=== PATIENT | female | born 1985 | race Caucasian/White ===

== ENCOUNTER 2024-10-02 18:04 | Emergency (ER) | payer MEDICAID, SELFPAY ==
[2024-10-02 18:06] VITALS: BP 117/78; PULSE 98; RESP 16; TEMP 36.9; O2SAT 100; BMI 21.1
--- NOTE | 2024-10-02 18:15 | CT_ITS ---
PROCEDURE: BRAIN/HEAD WITHOUT CONTRAST REASON FOR EXAM: CHANGE IN MENTAL STATUS TECHNIQUE: Head CT without intravenous contrast. COMPARISON: None. FINDINGS: There is no acute intracranial hemorrhage, mass effect, or evidence of large acute infarct. Brain: Normal CSF Spaces: Normal Sinuses/Mastoids: Clear at visualized levels Bones: Unremarkable CT/Brain/Head without Contrast IMPRESSION: No acute intracranial abnormality. If concern persists, consider MRI One or more dose reduction techniques were used (e.g., Automated exposure contr ol, adjustment of the mA and/or kV according to patient size, use of iterative reconstruction technique). Reading Location: [id number]
--- NOTE | 2024-10-02 18:16 | EX.ED.DYSGE1 ---
HPI History of Present Illness Chief Complaint: Mental Status Change Narrative Narrative: 38-year-old female was brought in by EMS. History is limited but apparently patient has history of drug use and has been staying with family and not taking her psychiatric medications. Today she was hallucinating bugs were crawling out of her skin and became very agitated. Family called EMS who gave the patient IM Versed 4 mg. She became lethargic and was brought in for evaluation. PFSH PFS Medical History unable to obtain Allergy/AdvReac Type Severity Reaction Status Date / Time No Known Allergies Allergy Verified 10/02/24 19:16 Family History unable to obtain Surgical History unable to obtain Social History Smoking Status: Heavy Smoker (>10/day) ROS ROS ED ROS Narrative Unable to obtain due to patient cooperation and mental status EXAM Physical Exam Narrative Exam Narrative: CONST: Patient lying in bed with eyes closed. EYES: Normal inspection. PERRL. NECK: Normal inspection. RESP: No respiratory distress, CTAB. CVS: Regular rate and rhythm, no murmur, no gallop. ABD: Soft and nontender, no guarding or rebound, nondistended. SKIN: Color normal, no rash, warm, dry, intact. EXTREMITIES: Normal appearance, no pedal edema. NEURO: Alert and answering questions appropriately. Equal virtual assistant for advertisers strength, moving all extremities. PSYCH: Normal affect. Const Vital Signs: 10/02/24 18:06 10/02/24 19:05 10/02/24 20:00 Temperature 98.4 F Temperature Source Temporal Pulse Rate 98 62 73 Respiratory Rate 16 12 19 H Blood Pressure 117/78 120/79 Blood Pressure Mean 91 92 Pulse Ox 100 98 96 Oxygen Delivery Method Room Air Room Air Room Air 10/02/24 21:00 Temperature Temperature Source Pulse Rate 69 Respiratory Rate 17 Blood Pressure Blood Pressure Mean Pulse Ox 99 Oxygen Delivery Method Room Air MDM MDM MDM Narrative Medical decision making narrative: History gathered from: Patient, her mother and [id number] Differential includes drug use versus underlying psychiatric disorder Patient's family arrived to provide more history. She had a recent psychiatric hospitalization in [place] 2 weeks ago and has bipolar with psychotic features. She has not been taking her medications (possibly olanzapine?) and has been having hallucinations. On arrival patient was sleepy but arouses to voice and answers basic questions appropriately. She has no focal neurological deficits. White count is normal at 8.5. Hemoglobin 11.0. BMP shows normal electrolytes and renal function. Glucose is low at 41. Patient is actually much more awake and alert was given orange juice and a snack. Urine tox is positive for amphetamines and benzodiazepines. When I told her the results she admits to smoking meth and she received Versed from the paramedics which explains the positive benzodiazepine result. Alcohol is negative. CT brain is negative. Patient is medically cleared for evaluation by crisis. Lab Data Attestation: I reviewed the patient's lab results. Labs: Laboratory Results - last 24 hr 10/02/24 10/02/24 10/02/24 19:25 19:35 20:57 WBC 8.5 RBC 4.09 L Hgb 11.0 L Hct 33.3 L MCV 81.4 MCH 26.9 L MCHC 33.0 RDW Std Deviation 46.4 H RDW Coeff of Tutu 15.8 H Plt Count 357 MPV 10.9 Immature Gran % (Auto) 0.200 Neut % (Auto) 47.2 Lymph % (Auto) 39.8 [place] % (Auto) 9.9 Eos % (Auto) 2.3 Baso % (Auto) 0.6 Absolute Neuts (auto) 4.0 Absolute Lymphs (auto) 3.39 Nucleated RBC % 0 Sodium 140 Potassium 4.0 Chloride 100 Carbon Dioxide 22.1 Anion Gap 17 H BUN 15 Creatinine 0.81 Estim Creat Clear Calc 84.74 Est GFR (MDRD) Non-Af 95 BUN/Creatinine Ratio 18.1 Glucose 41 L* Calcium 10.5 Total Bilirubin 0.35 AST 39 H ALT 25 Alkaline Phosphatase 86 Total Protein 9.4 H Albumin 5.3 H Globulin 4.1 Albumin/Globulin Ratio 1.3 Urine Test Negative Urine Opiates Screen NEGATIVE U Buprenorphine Qual NEGATIVE Ur Oxycodone Screen NEGATIVE Urine Methadone Screen NEGATIVE Urine Fentanyl Screen NEGATIVE Ur Barbiturates Screen NEGATIVE Ur Phencyclidine Scrn NEGATIVE Ur Amphetamines Screen PRESUMPTIVE POSITIVE U Benzodiazepines Scrn PRESUMPTIVE POSITIVE Urine Cocaine Screen NEGATIVE U Cannabinoids Screen NEGATIVE Ethyl Alcohol < 10.1 Radiography Diagnostic Testing: Clinical Impression(s) from Imaging Studies Brain CT 10/02/24 18:15 IMPRESSION: No acute intracranial abnormality. If concern persists, consider MRI One or more dose reduction techniques were used (e.g., Automated exposure control, adjustment of the mA and/or kV according to patient size, use of iterative reconstruction technique). Reading Location: [facility] Discharge Plan Triage Chief Complaint: Mental Status Change Other Complaint: Mental Health ED Midlevel Provider: Celsa Alicea ED Provider: Ron Macias Dx/Rx/DC Orders Clinical Impression: Psychosis, Hx of medication noncompliance, Hypoglycemia Primary Care Provider: Makenna Paris Referrals: Makenna Paris MD [Primary Care Provider] - Print Language: Bulgarian
--- NOTE | 2024-10-02 18:18 | EX.ED.DYSGE1 ---
HPI History of Present Illness Chief Complaint: Mental Status Change Detail of Chief Complaint: Mental status change PFSH PFSH Medical History unable to obtain Allergy/AdvReac Type Severity Reaction Status Date / Time No Known Allergies Allergy Verified 10/02/24 19:16 Family History unable to obtain Surgical History unable to obtain Social History Smoking Status: Heavy Smoker (>10/day) EXAM Physical Exam Const Vital Signs: 10/02/24 18:06 10/02/24 19:05 10/02/24 20:00 Temperature 98.4 F Temperature Source Temporal Pulse Rate 98 62 73 Respiratory Rate 16 12 19 H Blood Pressure 117/78 120/79 Blood Pressure Mean 91 92 Pulse Ox 100 98 96 Oxygen Delivery Method Room Air Room Air Room Air 10/02/24 21:00 10/02/24 22:00 Temperature Temperature Source Pulse Rate 69 103 H Respiratory Rate 17 14 Blood Pressure 120/71 Blood Pressure Mean 87 Pulse Ox 99 100 Oxygen Delivery Method Room Air Room Air MDM MDM MDM Narrative Medical decision making narrative: I have personally performed a face to face assessment of the patient and have reviewed the SERINA Note. I performed a substantive portion of the visit including all aspects of the following. My cisneros findings include: History is [patient presents to the emergency department via EMS from parents home with concern for agitation and mental status change. Apparently patient felt like there were bugs crawling all over her and was agitated and initially refused transfer by EMS. Police was there also and apparently would not pink slipped her. Family states that she was that of some sort of a drug rehab facility and apparently was supposed to be taking some medication which she has not been taking. Patient admits to hearing voices but sometimes ago when she blows her ears. She tells me that her boyfriend is in some sort of a devils advocate cult.it is unclear if she has been using drugs. Family is not here at this time. Patient herself denies taking any drugs. She denies wanting to harm herself or anybody else. She denies injuries. EMS did give patient 4 mg of Versed and she has somnolent on arrival.] Exam is [HELEANDERPERDannyLA, EOMI. Cranial nerves II through XII grossly intact. TMs clear. Mucous membranes moist. No adenopathy. Patient somnolent however she does answer questions appropriately when prompted. Moving all extremities. No evidence of trauma to her head. Cardiovascular-regular rate and rhythm without murmur or ectopy Lungs-clear to auscultation, chest wall stable without crepitus or subcu emphysema Abdomen-normoactive bowel sounds, soft, nontender, no rebound or rigidity, no peritoneal signs. Extremities-intact ?4, normal range of motion, normal pulses, atraumatic] Medical Decison Making [patient presents to the emergency department with mental status change and now medicated by EMS with Versed. Unclear the etiology of her mental status change although my understanding is that there is history of drug abuse. Will obtain a CT scan of her brain as well as basic labs. Will obtain alcohol and tox screen. Will monitor in the department.] Patient's mother and brother did arrive to the emergency department. They are concerned about her because she was recently discharged from a psychiatric facility about 2 weeks ago. She lives in [place] they went to get her and brought her up here because she needed a shower apparently. Also not too long ago she was admitted to a psychiatric facility in [place]. CBC with differential was unremarkable. Chemistries unremarkable. Talk screen positive for amphetamines as well as benzodiazepines. Alcohol was less than 10. CT scan of the brain without contrast unremarkable. Patient will require evaluation by crisis. I will pink slip the patient has been concerned about her mental wellbeing and decompensation. I believe she is likely having psychosis. She also admitted to smoking methamphetamines. Patient became belligerent and more agitated and had to be medicated with Geodon and Ativan. Care of patient turned over to evening physician awaiting evaluation by crisis for placement to psychiatric facility. Other additions or changes: [None] Lab Data Attestation: I reviewed the patient's lab results. Labs: Laboratory Results - last 24 hr 10/02/24 10/02/24 10/02/24 19:25 19:35 20:57 WBC 8.5 RBC 4.09 L Hgb 11.0 L Hct 33.3 L MCV 81.4 MCH 26.9 L MCHC 33.0 RDW Std Deviation 46.4 H RDW Coeff of Tutu 15.8 H Plt Count 357 MPV 10.9 Immature Gran % (Auto) 0.200 Neut % (Auto) 47.2 Lymph % (Auto) 39.8 [place] % (Auto) 9.9 Eos % (Auto) 2.3 Baso % (Auto) 0.6 Absolute Neuts (auto) 4.0 Absolute Lymphs (auto) 3.39 Nucleated RBC % 0 Sodium 140 Potassium 4.0 Chloride 100 Carbon Dioxide 22.1 Anion Gap 17 H BUN 15 Creatinine 0.81 Estim Creat Clear Calc 84.74 Est GFR (MDRD) Non-Af 95 BUN/Creatinine Ratio 18.1 Glucose 41 L* Calcium 10.5 Total Bilirubin 0.35 AST 39 H ALT 25 Alkaline Phosphatase 86 Total Protein 9.4 H Albumin 5.3 H Globulin 4.1 Albumin/Globulin Ratio 1.3 Urine Test Negative Urine Opiates Screen NEGATIVE U Buprenorphine Qual NEGATIVE Ur Oxycodone Screen NEGATIVE Urine Methadone Screen NEGATIVE Urine Fentanyl Screen NEGATIVE Ur Barbiturates Screen NEGATIVE Ur Phencyclidine Scrn NEGATIVE Ur Amphetamines Screen PRESUMPTIVE POSITIVE U Benzodiazepines Scrn PRESUMPTIVE POSITIVE Urine Cocaine Screen NEGATIVE U Cannabinoids Screen NEGATIVE Ethyl Alcohol < 10.1 Radiography Diagnostic Testing: Clinical Impression(s) from Imaging Studies Brain CT 10/02/24 18:15 IMPRESSION: No acute intracranial abnormality. If concern persists, consider MRI One or more dose reduction techniques were used (e.g., Automated exposure control, adjustment of the mA and/or kV according to patient size, use of iterative reconstruction technique). Reading Location: [facility] Discharge Plan Triage Chief Complaint: Mental Status Change Other Complaint: Mental Health ED Midlevel Provider: Celsa Alicea ED Provider: Ron Macias Dx/Rx/DC Orders Clinical Impression: Psychosis, Hx of medication noncompliance, Hypoglycemia, Methamphetamine abuse Primary Care Provider: Makenna Paris Referrals: Makenna Paris MD [Primary Care Provider] - Print Language: Danish
[2024-10-02 19:05] VITALS: BP 120/79; PULSE 62; RESP 12; O2SAT 98
[2024-10-02 19:50] LABS: Internal QC Validated? YES +Cl - CLEAR BKGD; Pregnancy, Urine Negative Negative
[2024-10-02 20:00] VITALS: PULSE 73; RESP 19; O2SAT 96
[2024-10-02 20:18] LABS: Amphetamine Urine PRESUMPTIVE POSITIVE (<1000 ng/mL); Barbiturate Urine NEGATIVE (< 200 ng/mL); Benzodiazepine Urine PRESUMPTIVE POSITIVE (< 200 ng/mL); Buprenorphine Urine NEGATIVE (< 200 ng/mL); Cocaine Urine NEGATIVE (< 300 ng/mL); Fentanyl, Urine NEGATIVE; Methadone Urine NEGATIVE (< 300 ng/mL); Opiates Urine NEGATIVE (< 300 ng/mL); Oxycodone, Urine NEGATIVE (< 100 ng/mL); PCP Urine NEGATIVE (< 25 ng/mL); THC Urine NEGATIVE (< 50 ng/mL)
[2024-10-02 20:20] LABS: Alcohol, Blood (Medical)-Serum < 10.1 mg/dL (<=10.0)
--- NOTE | 2024-10-02 20:24 | ED.RN ---
CHART FAXED, CRISIS CALLED.
[2024-10-02 20:39] LABS: ALB/GLOB Ratio 1.3 RATIO (0.9-2.4); AST(SGOT) 39 U/L (<=31); Alanine Aminotransfer ALT/SGPT 25 U/L (<=34); Albumin, Serum 5.3 g/dL (3.5-5.0); Alkaline Phosphatase 86 U/L (35-104); Anion Gap 17 (5-15); BUN 15 mg/dL (4-19); BUN/Creat Ratio 18.1 RATIO (10-20); Calcium,Total 10.5 mg/dL (7.6-11.0); Carbon Dioxide 22.1 mmol/L (21.0-32.0); Chloride 100 mmol/L (98-108); Creatinine, Serum 0.81 mg/dL (0.70-1.20); EST Glomerular Filtration Rate 95 (>60); Estimated Creatinine Clearance 84.74 ml/min (50-250); Globulin 4.1 g/dL (2.2-4.2); Protein, Total 9.4 g/dL (5.9-8.4); Sodium Level 140 mmol/L (133-145); Total Bilirubin 0.35 mg/dL (0.00-1.30)
[2024-10-02 21:00] VITALS: PULSE 69; RESP 17; O2SAT 99
[2024-10-02 21:11] LABS: Absolute Lymphocyte Count 3.39 X10^3/uL (0.83-4.51); Basophil# 0.05 X10^3/uL; Basophil% 0.6 % (0-1); Eosinophils% 2.3 % (0-5); Hematocrit 33.3 % (37-47); Lymphocyte # 3.39 X10^3/ul (0.83-4.51); Lymphocyte % 39.8 % (19-41); Mean Corpuscular Hgb 26.9 pg (27.0-32.0); Mean Corpuscular Volume 81.4 fL (81-99); Mean Platelet Vol. 10.9 fl (6.2-12.0); Monocyte# 0.84 X10^3/uL; Monocyte% 9.9 % (0-10); NRBC Flagged by Analyzer 0 % (0-5); Neutrophil # 4.02 X10^3/uL (2.7-7.7); Neutrophil % 47.2 % (47-70); Platelet Count 357 K/mm3 (150-450); RBC Distribution Width CV 15.8 % (11.6-14.6); RBC Distribution Width SD 46.4 fl (35.1-43.9); Red Blood Count 4.09 M/mm3 (4.2-5.4); White Blood Count 8.5 K/mm3 (4.4-11.0)
--- NOTE | 2024-10-02 21:35 | ED.RN ---
Patient overheard having multiple conversations with herself stating she has a microchip in her head. She has also stated that she is anni. Patient heard chanting in room and observed having a flight of ideas. Observed making multiple unintelligible noises
--- NOTE | 2024-10-02 21:57 | ED.RN ---
Patient observed making moaning sounds from the hallway patient repeating my horse is roared now, roar is my horse now.
[2024-10-02 22:00] VITALS: BP 120/71; PULSE 103; RESP 14; O2SAT 100
[2024-10-02] MEDS: Ziprasidone IM 20 MG/ML VIAL IM (22:19)
[2024-10-02] MEDS: Lorazepam 2 MG/ML WCH Syringe 1 MG IV (22:42)
--- NOTE | 2024-10-02 22:45 | ED.RN ---
Pt is rambling and crying, pt continues to get louder and louder, attempted to redirect pt, unsuccessful. Security at bedside. Family returns and comes to room, pt starts yelling at family, she is upset because she is pink slipped. Medication ordered by Dr Macias and administered.
[2024-10-02 23:00] VITALS: PULSE 88
[2024-10-03 00:05] LABS: Glucose 41 mg/dL (70-99)
--- NOTE | 2024-10-03 00:32 | ED.RN ---
CRISIS AT BEDSIDE.
--- NOTE | 2024-10-03 01:58 | ED.RN ---
CRISIS CALLED, PT REFERRED TO [facility]
--- NOTE | 2024-10-03 02:50 | ED.RN ---
PT ACCEPTED [facility] ITU2 UNIT N2N [phone] OPT1
[2024-10-03 03:09] VITALS: PULSE 84; RESP 16; O2SAT 99
--- NOTE | 2024-10-03 06:34 | ED.RN ---
this rn attempts to call report to [facility] at this time with no answer. the nurse from intake took ER phone number down and will have the staff call back to receive report.
[2024-10-03 07:00] VITALS: PULSE 92; RESP 15; O2SAT 94
[2024-10-03 08:27] VITALS: BP 121/77; PULSE 93; RESP 19; TEMP 36.8; O2SAT 98
== END 2024-10-03 08:35 ==
PROVIDERS: Physician Assistant; Emergency Provider Emergency Medicine; PCP Student in an Organized Health Care Education/Training Program; Visit Provider Emergency Medicine
DX: F29 Unspecified psychosis not due to a substance or known physiological condition (principal); F15.10 Other stimulant abuse, uncomplicated; F17.200 Nicotine dependence, unspecified, uncomplicated; R40.0 Somnolence; Z91.148 Patient's other noncompliance with medication regimen for other reason; E16.2 Hypoglycemia, unspecified
CPT/HCPCS: 70450; 80053; 80307; 81025; 82077; 85025; 87491; 87591; 96372; 96374; 99285; A4216; J3486